=== PATIENT | female | born 1995 | race Caucasian/White ===

== ENCOUNTER 2016-10-22 12:41 | Emergency (ER) | payer OTHER ==
[~2016-10-22 12:41] MED LIST: BIRTH CONTROL PO; MULTIPLE VIT PO; OSTEO BI-FLEX1 EACH PO
[2016-10-22 13:48] LABS: ASCORBIC ACID (UR NOT ORDER) NEG (NEG); BILIRUBIN, URINE NEGATIVE (NEG); ER URINALYSIS TAT 0 Hrs 12 Mins; KETONE, URINE NEGATIVE (NEG); LEUKOCYTE ESTERASE(NOT OR NEG (NEG); NITRITE (URINE) NEG (NEG); WBC (NOT ORDERED) (RFLEX) 1 (0-5)
== END 2016-10-22 18:06 | disposition home or self-care (01) ==
LOC: ER 12:41
PROVIDERS: Nurse Practitioner
DX: R51 Headache (principal); R55 Syncope and collapse
CPT/HCPCS: 70450; 81001; 84703; 93005; 99284; A9270-GY